=== PATIENT | female | born 1935 | race Caucasian/White ===

== ENCOUNTER 2019-11-02 11:25 | Inpatient (IN) | payer MEDICARE, BC ==
[2019-11-02] MEDS ORDERED: Diltiazem 125 MG/25 ML ONE (11:53)
[2019-11-02] MEDS ORDERED: Enoxaparin Sodium 80 MG/0.8 ML SYRINGE ONE (11:53)
[2019-11-02 12:14] LABS: #Basophils 0.1 thou/uL (0.0-0.2); #Lymphocytes 1.8 thou/uL (1.20-3.40); #Monocytes 0.5 thou/uL (0.11-0.59); #Neutrophils 5.4 thou/uL (1.40-6.50); %Basophils 0.7 % (0.0-1.0); %Eosinophils 0.5 % (0.0-10.0); %Neutrophils 69.9 % (42.0-75.0); Mean Corpuscular HGB CONC 31.6 g/dL (32.0-36.0); Mean Corpuscular Hemoglobin 29.9 pg (27.0-31.0); Mean Corpuscular Volume 94.5 fL (78.0-98.0); Mean Platelet Volume 8.1 fL (7.4-10.4); Platelet Count 272 thou/uL (130-400); Red Blood Cell (RBC) Count 4.69 mill/uL (4.20-5.40); White Blood Cell (WBC) Count 7.7 thou/uL (4.8-10.8)
[2019-11-02] MEDS ORDERED: Diltiazem HCl 125 MG, Admixture Fee 1 EACH in Sodium Chloride 0.9% 100 ML IVPB SCH (12:15)
--- NOTE | 2019-11-02 12:35 | RAD ---
RADIOGRAPH CHEST 1 VIEW: DATE: 11/02/2019 TIME: 12:25 PM HISTORY: 83-year-old female with dyspnea COMPARISON: none FINDINGS: Moderate sized retrocardiac midline opacity. Small left pleural effusion. Subsegmental atelectasis at left lower lobe. Cardiomegaly versus pericardial fat pad. Ectasia and tortuosity of thoracic aorta with some calcification. Mild pulmonary venous engorgement. Hyperinflation suggestive of COPD. Tiny right pleural effusion. No pneumothorax or pulmonary edema. Nonspecific mild pulmonary faint densities at right lower lung zone. IMPRESSION: 1. Small bilateral pleural effusions, left greater than right. 2. Moderate size hiatal hernia.
[2019-11-02 12:37] LABS: ALT (SGPT) 41 U/L (8-55); AST (SGOT) 34 U/L (5-34); Alkaline Phosphatase 70 U/L (40-110); Anion Gap 15 mmol/L (10-20); BUN (Urea Nitrogen) 11 mg/dL (9.8-20.1); Bilirubin, Total 0.7 mg/dL (0.2-1.2); Calc. Creatinine Clearance 0 mL/min (70-130); Calcium 8.8 mg/dL (7.8-10.44); Carbon Dioxide 24 mmol/L (23-31); Chloride 103 mmol/L (98-107); Estimated GFR-MDRD 74; Globulin 2.7 g/dL (2.4-3.5); Glucose 119 mg/dL (83-110); Magnesium 1.7 mg/dL (1.6-2.6); Potassium 3.6 mmol/L (3.5-5.1); Protein, Total 6.7 g/dL (6.0-8.3); Sodium 138 mmol/L (136-145)
[2019-11-02] MEDS ORDERED: Guaifenesin DM 100-10/5 ML UDCUP PO PRN (14:20)
[2019-11-02] MEDS ORDERED: Sodium Chloride 0.9% 1,000 ML IV SCH (14:20)
[2019-11-02] MEDS ORDERED: Ondansetron PF 4 MG/2 ML Vial IVP PRN (14:20)
[2019-11-02] MEDS ORDERED: Calcium Carbonate 500 MG ChewTAB PO PRN (14:20)
[2019-11-02] MEDS ORDERED: Senokot S 8.6-50 MG TAB PO PRN (14:20)
[2019-11-02] MEDS ORDERED: Bisacodyl 10 MG SUPP PR PRN (14:20)
[2019-11-02] MEDS ORDERED: Acetaminophen 325 MG TAB PO PRN (14:20)
[2019-11-02 14:55] VITALS: BMI 25.9
[2019-11-02] MEDS: Diltiazem 125 MG in Sodium Chloride 0.9% 100 ML IVPB SCH (15:22)
[2019-11-02 15:26] LABS: Troponin I 0.011 ng/mL (< 0.028)
--- NOTE | 2019-11-02 18:56 | HP ---
REASON FOR ADMISSION: AFib with RVR. HISTORY OF PRESENTING ILLNESS: The patient gives history of having off and on shortness of breath for last 3 months. She also developed panic attacks off and on with these episodes. She could not sleep well. Because of the COVID-19 viral situation, the patient did not want to go to emergency room and catch the coronavirus. [place]. This morning, the patient had gone for a routine colonoscopy with Dr. Diaz, and at the triage was found to be in AFib with RVR and was sent over here. The patient's heart rate was in the 140s to 150s on arrival. She was given 20 mg IV push Cardizem and has been placed on 5 mg/hour of Cardizem drip. Has no complaints of chest pain or palpitation. No prior cardiac workup including stress test. She has seen Dr. Ackerman on a yearly basis, but has never had any cardiac workup, except for EKG per the patient. Her next scheduled appointment is on the November 16. There was no increase of her thyroid medication recently. No fever, cough, or expectoration. PAST MEDICAL AND SURGICAL HISTORY: History of hypothyroidism with prior likely hemithyroidectomy with parathyroids being removed, cataract surgery, right meniscal repair in the knee, hysterectomy done a year back for a benign mass, osteoarthritis. Hypertension, dyslipidemia. CURRENT MEDICATIONS: 1. Norvasc 5 mg twice daily. 2. Aspirin 81 mg p.o. daily. 3. Levothyroxine 25 mcg p.o. daily. 4. Protonix 40 mg p.o. daily. 5. Simvastatin 40 mg p.o. at bedtime. 6. Olmesartan-hydrochlorothiazide 20/12.5 mg p.o. daily. ALLERGIES: NO KNOWN DRUG ALLERGIES. PERSONAL HISTORY: Quit smoking 15 years back, prior to which has smoked half a pack for all her life. Drinks a glass of red wine at 5 p.m. Does not abuse drugs. She lives alone, ambulates by herself. FAMILY HISTORY: Mother of natural causes at the age of 92. Father at the age of 75, he has had history of diabetes and obesity. CODE STATUS: Full. Power of district attorney is her significant other, Mr. Kassandra Cheng. REVIEW OF SYSTEMS: CONSTITUTIONAL: Negative for weight loss or gain, ability to conduct usual activities. SKIN: Negative for rash, itching. EYES: Negative for double vision, pain. ENT/MOUTH: Negative for nose bleeding, neck stiffness, pain, tenderness. CARDIOVASCULAR: Negative for palpitations, dyspnea on exertion, orthopnea. RESPIRATORY: Negative for shortness of breath, wheezing, cough, hemoptysis, fever or night sweats. GASTROINTESTINAL: Negative for poor appetite, abdominal pain, heartburn, nausea, vomiting, constipation, or diarrhea. GENITOURINARY: Negative for urgency, frequency, dysuria, nocturia. MUSCULOSKELETAL: Negative for pain, swelling. NEUROLOGIC/PSYCHIATRIC: Negative for anxiety, depression. ALLERGY/IMMUNOLOGIC: Negative for skin rash, bleeding tendency. PHYSICAL EXAMINATION: GENERAL: The patient is an 83-year-old female, who is currently not in any acute distress. VITAL SIGNS: Blood pressure 140/90, pulse 160 on arrival, temperature 98.2 degrees Fahrenheit, respiratory rate 20 per minute, saturating 99% on 3 L nasal cannula. NECK: Supple. No elevated JVD. HEENT: Eyes; extraocular muscles intact. Pupils reacting to light. Oral cavity, mucous membranes are moist. No exudates or congestion. CARDIOVASCULAR: S1 and S2 heard. Irregular rhythm. RESPIRATORY: Air entry 1+ bilateral. Scattered rhonchi plus no wheezes. ABDOMEN: Soft. Bowel sounds heard. No tenderness, rigidity, or guarding. EXTREMITIES: No peripheral edema or calf tenderness. VASCULAR: Peripheral pulses 1+ bilateral. No ischemic ulcerations or gangrene. CENTRAL NERVOUS SYSTEM: No gross focal motor deficits are noted. The patient is alert, awake, and oriented well. PSYCHIATRIC: The patient's mood is euthymic. No hallucinations or delusions. IMAGING STUDIES: EKG done shows AFib with RVR at 145 beats per minute. Chest x-ray done shows chronic lung changes with moderate-sized hiatal hernia. LABORATORY DATA: White count of 7.7, H and H 14 and 44, platelet count 272, with 69% neutrophils, MCV is 94, BUN is 11, creatinine is 0.7, serum bicarb 24, serum glucose 119. AST, ALT, and alkaline phosphatase is within normal limits. Troponin x2 negative. BNP 322. Albumin is 4. TSH 2.3. CLINICAL IMPRESSION AND PLAN: The patient will be admitted to telemetry for atrial fibrillation, which likely is new onset. She likely has had atrial fibrillation with rapid ventricular response from last 3 months based on her symptoms. Her rate is currently controlled around 100 per minute on Cardizem 5 mg an hour and will continue the same. She will also be placed on a small dose of Lopressor 25 mg twice daily and then low dose of Cozaar at 25 mg daily. The patient became hypotensive after 20 mg IV push Cardizem and will place her on normal saline at 50 mL per hour for buffer with her being on Cardizem 5 mg an hour. She has received full dose of Lovenox, and we will continue her on 70 mg subcu q.12 hourly. Echo with 2D Doppler for LV function. I have discussed her findings with Dr. Chiang for Cardiology consultation. We will obtain thyroid labs in the morning. We will keep her n.p.o. after midnight, if any workup needs to be done as tomorrow is Wednesday. We will continue to closely monitor her for any hemodynamic compromise. Job ID: [id number]
[2019-11-02] MEDS ORDERED: Potassium Chloride 20 MEQ TAB PO SCH (19:00)
--- NOTE | 2019-11-02 20:02 | CON ---
DATE OF CONSULTATION: 11/02/2019 REASON FOR CONSULTATION: Atrial fibrillation. HISTORY OF PRESENT ILLNESS: Ms. Pimentel is a very pleasant 83-year-old woman. She was going for colonoscopy today and was found that she had a rapid heart rate. She was referred to the emergency room. She was found to be in atrial fibrillation with a rapid rate at 145 beats per minute. The patient was started on intravenous Cardizem with good rate controlled. She feels well now. The patient states now that she is aware of it. She has had some feeling of her heart beating rapidly at times and shortness of breath at times for several months. No chest pain or pressure. PAST MEDICAL HISTORY: She has a history of having enlarged cardiac silhouette on chest x-ray, but an echocardiogram did not show enlargement of her left ventricle according to the patient. MEDICATIONS: At home; 1. Levothyroxine. 2. Simvastatin. 3. Amlodipine. 4. Olmesartan. 5. Vitamin B12. REVIEW OF SYSTEMS: CONSTITUTIONAL: No significant weight gain or loss. VISION: No changes. HEARING: No changes. PULMONARY: No cough or wheezing. CARDIAC: As outlined above. GASTROINTESTINAL: No nausea, vomiting, or diarrhea. SKIN: No rashes. NEUROLOGIC: No unilateral weakness or numbness. PSYCHIATRIC: No unusual depression or anxiety. PHYSICAL EXAMINATION: GENERAL: This is a pleasant 83-year-old woman. VITAL SIGNS: Blood pressure is now 150/80, pulse is now in the 70s with atrial fibrillation. LUNGS: Clear. CARDIAC: Irregularly irregular. ABDOMEN: Soft and nontender. EXTREMITIES: There is [id number] edema. PERTINENT LABORATORY DATA: Potassium is 3.6. Echocardiogram showed normal left ventricular function with markedly enlarged left and right atria. ASSESSMENT: 1. Atrial fibrillation, newly diagnosed, probably chronic. 2. History of hypertension. PLAN: 1. Agree with anticoagulation. 2. We will transition to diltiazem orally. 3. If possible, transesophageal echo and cardioversion to be done tomorrow. The other option would be to rate control her and have her follow with Dr. Ackerman for outpatient cardioversion. Job ID: [id number]
[2019-11-02] MEDS: Enoxaparin Sodium 80 MG/0.8 ML SYRINGE SC SCH (20:30)
[2019-11-02] MEDS: Rosuvastatin 20 MG TAB PO SCH (20:30)
[2019-11-02] MEDS: Famotidine 20 MG TAB PO SCH (20:30)
[2019-11-02] MEDS ORDERED: Metoprolol Tartrate 25 MG TAB PO SCH (21:00)
[2019-11-02] MEDS ORDERED: Atorvastatin Calcium 20 MG TAB PO SCH (21:00)
[2019-11-02] MEDS: Lorazepam 2 MG/ML VIAL SLOW IVP PRN (22:56)
[2019-11-03 04:51] LABS: #Monocytes 0.6 thou/uL (0.11-0.59); #Neutrophils 3.8 thou/uL (1.40-6.50); %Basophils 0.5 % (0.0-1.0); %Eosinophils 0.7 % (0.0-10.0); %Monocytes 9.1 % (0.0-10.0); %Neutrophils 58.7 % (42.0-75.0); Hemoglobin 12.6 g/dL (12.0-16.0); Mean Corpuscular HGB CONC 32.1 g/dL (32.0-36.0); Mean Corpuscular Hemoglobin 30.4 pg (27.0-31.0); Mean Corpuscular Volume 94.5 fL (78.0-98.0); Mean Platelet Volume 8.7 fL (7.4-10.4); Platelet Count 227 thou/uL (130-400); RBC Distribution Width 12.9 % (11.5-14.5); Red Blood Cell (RBC) Count 4.15 mill/uL (4.20-5.40); White Blood Cell (WBC) Count 6.4 thou/uL (4.8-10.8)
[2019-11-03 05:10] LABS: Anion Gap 13 mmol/L (10-20); BUN (Urea Nitrogen) 12 mg/dL (9.8-20.1); Calc. Creatinine Clearance 60 mL/min (70-130); Calcium 8.4 mg/dL (7.8-10.44); Carbon Dioxide 26 mmol/L (23-31); Chloride 103 mmol/L (98-107); Estimated GFR-MDRD 69; Glucose 103 mg/dL (83-110); Potassium 3.8 mmol/L (3.5-5.1); Sodium 138 mmol/L (136-145)
[2019-11-03 05:29] LABS: Free T4 (Free Thyroxine) 1.12 ng/dL (0.70-1.48); Thyroid Stimulating Hormone 3.5771 uIU/mL (0.35-4.94)
[2019-11-03] MEDS: Levothyroxine Sodium 25 MCG TAB PO SCH (06:29)
[2019-11-03] MEDS: Diltiazem 125 MG in Sodium Chloride 0.9% 100 ML IVPB SCH (06:56)
[2019-11-03] MEDS ORDERED: Promethazine HCl 25 MG/ML VIAL IM PRN (07:28)
[2019-11-03] MEDS ORDERED: Promethazine HCl 25 MG/ML VIAL SLOW IVP PRN (07:28)
[2019-11-03] MEDS ORDERED: Ondansetron HCl/PF 4 MG/2 ML Vial IVP PRN (07:28)
[2019-11-03] MEDS ORDERED: Carvedilol 6.25 MG TAB PO SCH ×2 (08:20→08:30)
[2019-11-03] MEDS ORDERED: Amiodarone 200 MG TAB PO SCH (09:00)
[2019-11-03] MEDS ORDERED: Losartan 25 MG TAB PO SCH ×2 (09:00)
[2019-11-03] MEDS ORDERED: PROPOFOL 200 MG/20 ML VIAL ONE (09:03)
[2019-11-03] MEDS ORDERED: Lidocaine 1% PF 5 ML VIAL ONE (09:03)
[2019-11-03] MEDS: Famotidine 20 MG TAB PO SCH ×2 (09:07→20:23)
[2019-11-03] MEDS: Enoxaparin Sodium 80 MG/0.8 ML SYRINGE SC SCH ×2 (09:07→20:23)
[2019-11-03] MEDS: Carvedilol 6.25 MG TAB PO SCH ×3 (09:08→17:03)
[2019-11-03] MEDS: Aspirin Chewable 81 MG TAB PO SCH (09:09)
--- NOTE | 2019-11-03 10:03 | OP ---
DATE OF PROCEDURE: 11/03/2019 PROCEDURE PERFORMED: Transesophageal echocardiogram. INDICATION: This is an 83-year-old woman with mitral regurgitation. DESCRIPTION OF PROCEDURE: The patient was taken to the PACU. The patient was sedated by Anesthesiology. A transesophageal probe was placed into the distal esophagus and stomach. Echocardiographic images were obtained. The transesophageal probe was removed. FINDINGS: 1. Severe decrease in left ventricular systolic function. 2. Biatrial enlargement. 3. Left ventricle was dilated. 4. Vmogxqbf-uv-knyeyg mitral regurgitation. 5. Moderate tricuspid regurgitation. 6. Mild aortic regurgitation. 7. No thrombus is noted in left atrium or left atrial appendage. 8. Atherosclerotic debris in the descending aorta. IMPRESSION: No formed thrombus in the left atrium or left atrial appendage with severe mitral regurgitation. Job ID: [id number]
[2019-11-03] MEDS ORDERED: Potassium Chloride 20 MEQ TAB PO SCH (12:00)
[2019-11-03] MEDS: Lorazepam 2 MG/ML VIAL SLOW IVP PRN (13:01)
--- NOTE | 2019-11-03 13:17 | CCLSPC ---
PROCEDURE: Cardioversion. DESCRIPTION OF PROCEDURE: The patient was brought to the post-catheterization area, in a fasting state. Transesophageal echocardiogram revealed depressed left ventricular function. No evidence of any intracardiac thrombus. Significant mitral regurgitation was present on the transesophageal echocardiogram. The patient was given 200 joules direct current synchronized energy and converted to sinus rhythm. CONCLUSION: Successful cardioversion. The patient did have frequent PACs. After the cardioversion, now she is in sinus rhythm. Job ID: [id number]
--- NOTE | 2019-11-03 14:00 | PDOC.HOSPP ---
- Subjective Encounter Date: 11/03/19 Encounter Time: 11:00 Subjective: had cardioversion this am, feels good, no sob or chest pain or palp - Objective Vital Signs & Weight: Vital Signs (12 hours) Temp Pulse Resp BP BP Pulse Ox 11/03/19 11:02 97.7 F 63 18 108/65 94 L 11/03/19 06:57 97.6 F 87 18 114/72 99 11/03/19 04:22 98.4 F 76 16 112/72 94 L Weight Weight 151 lb 8 oz Result Diagrams: 11/03/19 03:46 11/03/19 03:46 Hospitalist ROS - Medication Medications: Active Medications Generic Name Dose Route Start Last Admin Trade Name Freq PRN Reason Stop Dose Admin Amiodarone HCl 400 mg 11/03/19 09:00 11/03/19 09:07 Cordarone PO 400 mg TID TYRONE Administration Aspirin 81 mg 11/03/19 09:00 11/03/19 09:09 Aspirin Chewable PO 81 mg DAILY TYRONE Administration Carvedilol 6.25 mg 11/03/19 17:00 11/03/19 09:09 Coreg PO 6.25 mg BID-WM TYRONE Administration Enoxaparin Sodium 70 mg 11/02/19 21:00 11/03/19 09:07 Lovenox SC 70 mg Q12HR TYRONE Administration Famotidine 20 mg 11/02/19 21:00 11/03/19 09:07 Pepcid PO 20 mg BID TYRONE Administration Diltiazem HCl 125 mg/ Sodium 125 mls @ 5 mls/hr 11/02/19 14:20 11/03/19 06:56 Chloride IVPB 125 mls INF TYRONE Administration Protocol 5 MG/HR Levothyroxine Sodium 25 mcg 11/03/19 06:00 11/03/19 06:29 Synthroid PO 25 mcg 0600 TYRONE Administration Lorazepam 0.5 mg 11/02/19 14:20 11/03/19 13:01 Ativan SLOW IVP 0.5 mg Q6H PRN Administration Anxiety/Agitation Losartan Potassium 100 mg 11/03/19 09:00 11/03/19 09:08 Cozaar PO 100 mg DAILY TYRONE Administration Potassium Chloride 40 meq 11/03/19 12:00 11/03/19 11:08 K-Dur PO 11/03/19 14:00 40 meq 1200 TYRONE Administration Rosuvastatin Calcium 20 mg 11/02/19 21:00 11/02/19 20:30 Crestor PO 20 mg HS TYRONE Administration Sodium Chloride 10 ml 11/03/19 09:00 11/03/19 09:11 Flush - Normal Saline IVF 10 ml Q12HR TYRONE Administration - Exam General Appearance: awake alert Eye: PERRL, anicteric sclera ENT: no oropharyngeal lesions, moist mucosa Neck: supple, no JVD Heart: RRR, no murmur Respiratory: no wheezes, no rales Gastrointestinal: soft, non-tender, non-distended, normal bowel sounds Extremities: no cyanosis, no edema Neurological: cranial nerve grossly intact, no focal deficits Psychiatric: normal affect, A&O x 3 Hosp A/P (1) Atrial fibrillation with RVR Code(s): I48.91 - UNSPECIFIED ATRIAL FIBRILLATION Status: Acute (2) HTN (hypertension) Code(s): I10 - ESSENTIAL (PRIMARY) HYPERTENSION Status: Chronic Qualifiers: Hypertension type: essential hypertension Qualified Code(s): I10 - Essential (primary) hypertension (3) Dyslipidemia Code(s): E78.5 - HYPERLIPIDEMIA, UNSPECIFIED Status: Chronic (4) Hypothyroidism Code(s): E03.9 - HYPOTHYROIDISM, UNSPECIFIED Status: Chronic Qualifiers: Hypothyroidism type: unspecified Qualified Code(s): E03.9 - Hypothyroidism , unspecified - Plan s/p cardioversion with EVELINA this am, is in sinus rhythm is on amiodarone tid, coreg, cozaar, asp hemostable dc plan in am if stable
[2019-11-03] MEDS ORDERED: Sodium Chloride 0.9% 500 ML IV SCH (16:00)
[2019-11-03] MEDS: Rosuvastatin 20 MG TAB PO SCH (20:23)
[2019-11-04] MEDS: Levothyroxine Sodium 25 MCG TAB PO SCH (06:00)
[2019-11-04] MEDS: Famotidine 20 MG TAB PO SCH (07:36)
[2019-11-04] MEDS: Enoxaparin Sodium 80 MG/0.8 ML SYRINGE SC SCH (07:36)
[2019-11-04] MEDS: Aspirin Chewable 81 MG TAB PO SCH (07:36)
[2019-11-04] MEDS ORDERED: Carvedilol 6.25 MG TAB PO SCH (09:00)
[2019-11-04] MEDS ORDERED: Amiodarone 200 MG TAB PO SCH (09:00)
[2019-11-04] MEDS ORDERED: Losartan 25 MG TAB PO SCH (09:00)
[2019-11-04 12:07] VITALS: BP 138/92; TEMP 97.3
--- NOTE | 2019-11-05 00:58 | DIS ---
DATE OF ADMISSION: 11/02/2019 DATE OF DISCHARGE: 11/04/2019 DISCHARGE DIAGNOSES: 1. Atrial fibrillation. 2. Hypothyroidism. 3. Hyperlipidemia. 4. Hypertension. 5. Mitral regurgitation 6. Bilateral pleural effusions CONSULTATION: Cardiology, Dr. Joaquín Chiang. PROCEDURES: EVELINA on 11/02 with cardioversion. BRIEF HISTORY OF PRESENT ILLNESS: This is an 83-year-old female with a past medical history of hypothyroidism, hyperlipidemia, hypertension, who presented to the emergency room with tachycardia. The patient states that she was scheduled for a colonoscopy and was found to have a rapid heart rate with a rate of 145. She was sent to the emergency room for further evaluation. The patient has reported fatigue and shortness of breath on exertion for the past several months. She denies any chest pain. When she presented to the emergency room, she was found to be in atrial fibrillation with RVR with a heart rate of 145. She was started on IV Cardizem with improvement. She was admitted for further workup. HOSPITAL COURSE: Atrial fibrillation: The patient had Cardiology consultation. She underwent a EVELINA on 11/02. This showed moderate to severe MR, moderate TR. There was no thrombus. She underwent cardioversion. Afterwards, she converted to sinus rhythm and her heart rate was in the 70s at the time of discharge. She was started on amiodarone. She will be discharged with amiodarone 400 mg daily, and she was started on Eliquis 5 mg twice daily. She will follow up with Dr. Joaquín Chiang in 2-4 weeks. She was also started on Coreg 6.25 mg twice daily. Bilateral pleural effusions: The patient did have an x-ray of her chest on , which showed small bilateral pleural effusions. She was discharged with Lasix p.r.n. She is not requiring any oxygen at the time of discharge. DISCHARGE PHYSICAL EXAMINATION: VITAL SIGNS: Temperature 97.3, heart rate 75, respiratory rate 20, O2 saturation 98% on room air, and blood pressure 138/92 GENERAL: The patient is alert, awake, and oriented x3. CVS: Regular rate and rhythm with no murmurs, rubs, or gallops. LUNGS: Clear to auscultation bilaterally. ABDOMEN: Positive bowel sounds, soft, nontender, nondistended. EXTREMITIES: No edema. LABORATORY DATA: CBC 11/02: White count 6.4, hemoglobin 12.6, hematocrit 39.2, platelet count 227. BMP 11/02: Was normal. LFTs 11/01: Normal. Troponin I: 0.014, 0.011, 0.020. TSH 11/01: 2.34. IMAGING DATA: Chest x-ray 11/01: Shows small bilateral pleural effusions, left greater than right. Moderate size hiatal hernia. Echo 11/01: EF is 50% to 55%. There is mild aortic insufficiency. There is moderate to severe tricuspid regurgitation. PA systolic pressure was markedly elevated at 55 mmHg. There is mild to moderate MR. Aortic valve is calcified, but not stenotic. EVELINA: Shows severe decrease in LVEF. Moderate to severe MR. Moderate TR. Mild AR. DISCHARGE CONDITION: Stable. ACTIVITY: As tolerated. DIET: Heart healthy diet. DISCHARGE MEDICATIONS: 1. Amiodarone 400 mg p.o. daily. 2. Eliquis 5 mg p.o. b.i.d. 3. Coreg 6.25 mg p.o. b.i.d. 4. Furosemide 20 mg p.o. daily p.r.n. DISCHARGE INSTRUCTIONS: The patient to follow up with her PCP in a week. She should follow up with Dr. Joaquín Chiang in 2-4 weeks. Start taking amiodarone 400 daily, Coreg 6.25 mg twice daily, and Eliquis 5 mg p.o. b.i.d. for stroke prophylaxis. Get a repeat chest x-ray in a week to follow up bilateral pleural effusions. Job ID: [id number] [facility]
== END 2019-11-04 13:51 | disposition home or self-care (01) | DRG 309 ==
LOC: ERS 11:25 → 2NO 13:13
PROVIDERS: ADMIT Internal Medicine; ATTEND Internal Medicine
PROC: B24BZZ4 Ultrasonography of Heart with Aorta, Transesophageal (ICD-10-PCS; principal; 2019-11-03)
PROC: 5A2204Z Restoration of Cardiac Rhythm, Single (ICD-10-PCS; 2019-11-03)
DX: I48.91 Unspecified atrial fibrillation (principal); J90 Pleural effusion, not elsewhere classified; E03.9 Hypothyroidism, unspecified; E78.5 Hyperlipidemia, unspecified; I10 Essential (primary) hypertension; I08.3 Combined rheumatic disorders of mitral, aortic and tricuspid valves; M19.90 Unspecified osteoarthritis, unspecified site; Z79.890 Hormone replacement therapy; Z79.82 Long term (current) use of aspirin; Z79.899 Other long term (current) drug therapy; Z87.891 Personal history of nicotine dependence
CPT/HCPCS: 36415; 71045; 80048; 80053; 83735; 83880; 84439; 84443; 84481; 84484; 85025; 92960; 93005; 93010; 93306; 93312; 96365; 96366; 96372; 96376; J1650; J2060; J2704; J3490

== ENCOUNTER 2020-05-30 08:40 | Outpatient (CLI) | payer MEDICARE, BC ==
--- NOTE | 2020-05-30 09:04 | RAD ---
2 view chest: [05/30/2020] Comparison:05/14/2020 HISTORY: Shortness of breath FINDINGS: There are increased linear interstitial densities noted bilaterally with a perihilar/bibasi lar predominance. There is no pneumothorax or large volume pleural effusion. There is a hiatal hernia noted. There is a focal area of opacity in the medial right lung base on the frontal examination which appea rs new when compared to the prior exam. There is a suggestion of Jerry's B lines and the lung bases, particularly on the right. IMPRESSION: Linear interstitial density, similar when compared to prior examination. Probable new Ker markel's B lines within the lung bases suggest possibility of new mild interstitial pulmonary edema. There is a new area of opacity within the medial right lung base which was not seen on the 05/14/[address] This suggests interval development of volume loss or infiltrate within the right middle lobe. Recommend follow-up chest radiograph following treatment.
== END 2020-05-30 08:41 | disposition home or self-care (01) ==
LOC: BICRAD 08:40
PROVIDERS: ATTEND Internal Medicine Critical Care Medicine
DX: R06.00 Dyspnea, unspecified (principal); J98.4 Other disorders of lung; R91.8 Other nonspecific abnormal finding of lung field
CPT/HCPCS: 71046

== ENCOUNTER 2020-06-25 09:06 | Outpatient (CLI) | payer MEDICARE, BC | END 2020-06-25 09:07 | disposition home or self-care (01) | LOC: BICRAD 09:06 | PROVIDERS: ATTEND Internal Medicine Critical Care Medicine | DX: R06.00 Dyspnea, unspecified (principal); J98.4 Other disorders of lung; I70.0 Atherosclerosis of aorta; I51.7 Cardiomegaly | CPT/HCPCS: 71046 ==

== ENCOUNTER 2020-09-24 09:14 | Outpatient (CLI) | payer MEDICARE, BC | END 2020-09-24 09:15 | disposition home or self-care (01) | LOC: BICRAD 09:14 | PROVIDERS: ATTEND Internal Medicine Critical Care Medicine | DX: R06.00 Dyspnea, unspecified (principal) | CPT/HCPCS: 71046 ==

== ENCOUNTER 2020-09-29 16:37 | Emergency (ER) | payer MEDICARE, BC ==
[2020-09-29 17:40] LABS: #Basophils 0.1 thou/uL (0.0-0.2); #Eosinphils 0.2 thou/uL (0.0-0.7); #Lymphocytes 2.2 thou/uL (1.20-3.40); #Monocytes 0.6 thou/uL (0.11-0.59); #Neutrophils 4.3 thou/uL (1.40-6.50); %Basophils 0.9 % (0.0-1.0); %Eosinophils 2.4 % (0.0-10.0); %Lymphocytes 29.6 % (21.0-51.0); %Monocytes 8.6 % (0.0-10.0); %Neutrophils 58.6 % (42.0-75.0); Hemoglobin 13.7 g/dL (12.0-16.0); Mean Corpuscular HGB CONC 34.2 g/dL (32.0-36.0); Mean Corpuscular Hemoglobin 33.1 pg (27.0-31.0); Mean Corpuscular Volume 96.8 fL (78.0-98.0); Mean Platelet Volume 7.6 fL (7.4-10.4); Platelet Count 262 thou/uL (130-400); RBC Distribution Width 11.5 % (11.5-14.5); Red Blood Cell (RBC) Count 4.15 mill/uL (4.20-5.40); White Blood Cell (WBC) Count 7.3 thou/uL (4.8-10.8)
[2020-09-29 18:02] LABS: ALT (SGPT) 22 U/L (8-55); AST (SGOT) 25 U/L (5-34); Albumin 4.8 g/dL (3.4-4.8); Alkaline Phosphatase 75 U/L (40-110); Anion Gap 14 mmol/L (10-20); BUN (Urea Nitrogen) 14 mg/dL (9.8-20.1); Bilirubin, Total 0.4 mg/dL (0.2-1.2); Calc. Creatinine Clearance 0 mL/min (70-130); Carbon Dioxide 26 mmol/L (23-31); Chloride 101 mmol/L (98-107); Glucose 122 mg/dL (83-110); Potassium 4.5 mmol/L (3.5-5.1); Protein, Total 7.8 g/dL (5.8-8.1); Sodium 136 mmol/L (136-145)
== END 2020-09-29 20:24 | disposition home or self-care (01) ==
LOC: ERS 16:37
DX: I10 Essential (primary) hypertension (principal); R51.9 Headache, unspecified; I48.91 Unspecified atrial fibrillation; Z87.891 Personal history of nicotine dependence; Z79.01 Long term (current) use of anticoagulants; Z79.899 Other long term (current) drug therapy
CPT/HCPCS: 70450; 80053; 84484; 85025; 93005

== ENCOUNTER 2021-08-06 09:05 | Outpatient (CLI) | payer MEDICARE, BC | END 2021-08-06 09:06 | disposition home or self-care (01) | LOC: RAD 09:05 | PROVIDERS: ATTEND Internal Medicine Critical Care Medicine | DX: R06.00 Dyspnea, unspecified (principal) | CPT/HCPCS: 71046 ==

== ENCOUNTER 2022-10-15 14:32 | Outpatient (CLI) | payer MEDICARE, BC | END 2022-10-15 14:33 | disposition home or self-care (01) | LOC: RAD 14:32 | PROVIDERS: ATTEND Internal Medicine Critical Care Medicine | DX: R06.00 Dyspnea, unspecified (principal) | CPT/HCPCS: 71046 ==

== ENCOUNTER 2023-02-11 09:30 | Emergency (ER) | payer MEDICARE, BC ==
[2023-02-11 10:48] LABS: #Monocytes 0.9 thou/uL (0.11-0.59); #Neutrophils 10.6 thou/uL (1.40-6.50); %Basophils 0.3 % (0.0-1.0); %Eosinophils 0.2 % (0.0-10.0); %Lymphocytes 9.6 % (21.0-51.0); %Monocytes 6.6 % (0.0-10.0); %Neutrophils 82.8 % (42.0-75.0); Hematocrit 37.4 % (36.0-47.0); Hemoglobin 12.6 g/dL (12.0-16.0); Mean Corpuscular HGB CONC 33.7 g/dL (32.0-36.0); Mean Corpuscular Hemoglobin 33.1 pg (27.0-31.0); Mean Corpuscular Volume 98.2 fl (78.0-98.0); Mean Platelet Volume 9.4 fL (7.4-10.4); Platelet Count 321 10x3/uL (130-400); RBC Distribution Width 12.1 % (11.5-14.5); Red Blood Cell (RBC) Count 3.81 mill/uL (4.20-5.40); White Blood Cell (WBC) Count 12.9 10x3/uL (4.8-10.8)
[2023-02-11 11:12] LABS: ALT (SGPT) 23 U/L (8-55); AST (SGOT) 22 U/L (5-34); Albumin 4.2 g/dL (3.4-4.8); Alkaline Phosphatase 58 U/L (40-110); Anion Gap 16 mmol/L (10-20); BUN (Urea Nitrogen) 23 mg/dL (9.8-20.1); Bilirubin, Total 0.5 mg/dL (0.2-1.2); Calc. Creatinine Clearance 0 mL/min (70-130); Calcium 9.2 mg/dL (7.8-10.44); Carbon Dioxide 24 mmol/L (23-31); Chloride 101 mmol/L (98-107); Estimated GFR 50; Globulin 2.7 g/dL (2.4-3.5); Glucose 146 mg/dL (83-110); Potassium 4.4 mmol/L (3.5-5.1); Protein, Total 6.9 g/dL (5.8-8.1); Sodium 137 mmol/L (136-145)
[2023-02-11 11:17] LABS: INR-International Normal Ratio 1.6; Prothrombin Time 19.6 sec (12.0-14.7)
[2023-02-11 11:19] LABS: PTT 32.9 sec (22.9-36.1)
[2023-02-11] MEDS ORDERED: Iopamidol-370 76% 500 ML MDV (1 ML CHARGE) ONE (11:47)
[2023-02-11] MEDS ORDERED: Acetaminophen/Codeine 30-300mg Tablet ONE (12:25)
[2023-02-11] MEDS ORDERED: Orphenadrine Citrate 100 MG ER.TAB ONE (15:23)
== END 2023-02-11 19:09 | disposition home or self-care (01) ==
LOC: ERS 09:30
DX: S09.90XA Unspecified injury of head, initial encounter (principal); I10 Essential (primary) hypertension; Z87.891 Personal history of nicotine dependence; W18.30XA Fall on same level, unspecified, initial encounter
CPT/HCPCS: 36415; 70450; 74177; 80053; 85025; 85610; 85730; 93005; Q9967

== ENCOUNTER 2023-06-01 08:48 | Outpatient (CLI) | payer MEDICARE, BC | END 2023-06-01 08:49 | disposition home or self-care (01) | LOC: SCSRAD 08:48 | PROVIDERS: ATTEND Physician Assistant | DX: M54.50 Low back pain, unspecified (principal) | CPT/HCPCS: 72100 ==

== ENCOUNTER 2024-11-23 13:14 | Outpatient (CLI) | payer MEDICARE, BC | END 2024-11-23 13:15 | disposition home or self-care (01) | LOC: RAD 13:14 | PROVIDERS: ATTEND Internal Medicine Critical Care Medicine | DX: R06.00 Dyspnea, unspecified (principal); I51.7 Cardiomegaly; K44.9 Diaphragmatic hernia without obstruction or gangrene | CPT/HCPCS: 71046 ==